=== PATIENT | female | born 1995 ===

== ENCOUNTER 2021-12-24 21:21 | Emergency (ER) | payer MEDICAID ==
[2021-12-24] MEDS ORDERED: Diphtheria,Pertussis(Acell),Tetanus Vaccine 0.5 ML Syringe IM ONE (21:37)
== END 2021-12-24 22:00 | disposition home or self-care (01) ==
LOC: CC.ED 21:21
DX: S91.332A Puncture wound without foreign body, left foot, initial encounter (principal); Z23 Encounter for immunization; W45.0XXA Nail entering through skin, initial encounter
CPT/HCPCS: 90471; 90715; 99283